=== PATIENT | male | born 1985 | race Caucasian/White ===

== ENCOUNTER 2018-03-09 15:08 | Emergency (ER) | payer MEDICAID, OTHER ==
[2018-03-09] MEDS: IBUPROFEN 600 MG TAB PO (15:55)
[2018-03-09] MEDS: ACETAMINOPHEN 325 MG TAB PO (15:55)
[2018-03-09] MEDS ORDERED: morphine LIQ (10 MG/5 ML) CUP PO (16:00)
== END 2018-03-09 18:00 | disposition home or self-care (01) ==
LOC: FTE 15:08
DX: S99.911A Unspecified injury of right ankle, initial encounter (principal); X58.XXXA Exposure to other specified factors, initial encounter; Y92.810 Car as the place of occurrence of the external cause
CPT/HCPCS: 73610; 73610-RT; 73630; 99283-25